=== PATIENT | female | born 2005 | race Caucasian/White ===

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

== ENCOUNTER 2025-06-04 14:54 | Emergency (ER) | payer OTHER ==
[~2025-06-04] VITALS: Ht 162.6 cm; Wt 56.7 kg
[~2025-06-04 14:54] MED LIST changes: +CEPHALEXIN500 MG PO; +PHENAGIL TABLE1 EACH PO
[2025-06-04] MEDS ORDERED: KETOROLAC TROMETHAMINE 60 MG VIAL IM ONE (18:15)
[2025-06-04] MEDS ORDERED: CETIRIZINE HCL 5 MG/5 ML ML PO ONE (18:15)
[2025-06-04] MEDS ORDERED: CEFTRIAXONE SODIUM 1,000 MG VIAL IM ONE (18:15)
[2025-06-04 20:58] LABS: COVID-19 AG NEGATIVE (NEGATIVE)
[2025-06-04 21:37] LABS: BASO % 0.7 % (0.1-1.2); EOS # 0.13 (0.04-0.54); EOS % 4.4 % (0.7-7.0); LYMPH # 1.17 (1.18-3.74); LYMPH % 39.5 % (19.3-53.1); MEAN PLATELET VOLUME 10.00 fl (9.4-12.4); MONO # 0.55 (0.24-0.82); NEUT # 1.09 (1.56-6.13); NEUT % 36.8 % (34.0-71.1); RED CELL DISTRIBUTION WIDTH 12.2 % (11.6-14.4)
[2025-06-04 21:41] LABS: MONO % 18.6 % (4.7-12.5)
== END 2025-06-04 22:18 | disposition home or self-care (01) ==
LOC: ER 14:55
PROVIDERS: General Practice
DX: A90 Dengue fever [classical dengue] (principal); R50.9 Fever, unspecified; R05.8 Other specified cough; Z20.822 Contact with and (suspected) exposure to COVID-19